=== PATIENT | male | born 1955 | race Caucasian/White ===

== ENCOUNTER 2021-10-19 19:51 | Emergency (ER) | payer OTHER ==
[2021-10-19 19:54] VITALS: BP 123/69; PULSE 71
[2021-10-19] MEDS ORDERED: Take Home: Azithromycin 250 MG, 2 Tab Pack PO ONE (20:31)
== END 2021-10-19 21:06 | disposition home or self-care (01) ==
LOC: CC.ED 19:51
DX: J98.9 Respiratory disorder, unspecified (principal); Z20.822 Contact with and (suspected) exposure to COVID-19
CPT/HCPCS: 36415; 71046; 80053; 85025; 86140; 87804; 99283-25; 99284; A9270-GY; U0002

== ENCOUNTER 2023-09-12 12:08 | Day surgery (SDC) | payer OTHER ==
[2023-09-12] MEDS ORDERED: Propofol 200 MG/20 ML SDV ONE ×2 (12:25)
[2023-09-12] MEDS ORDERED: fentaNYL 50 MCG/ML SDV ONE (12:25)
[2023-09-12] MEDS ORDERED: Ketamine 200 MG/20 ML MDV ONE (12:25)
[2023-09-12] MEDS: Lactated Ringers 1,000 ML IV SCH (12:31)
[2023-09-12 13:52] VITALS: BP 137/72; PULSE 55
== END 2023-09-12 13:55 | disposition home or self-care (01) ==
LOC: CC.SDS 12:08
PROVIDERS: ATTEND Family Medicine
DX: Z12.11 Encounter for screening for malignant neoplasm of colon (principal); D12.3 Benign neoplasm of transverse colon; D12.5 Benign neoplasm of sigmoid colon; K62.1 Rectal polyp; K57.30 Diverticulosis of large intestine without perforation or abscess without bleeding; K64.8 Other hemorrhoids; J43.9 Emphysema, unspecified; F17.210 Nicotine dependence, cigarettes, uncomplicated; Z79.899 Other long term (current) drug therapy
CPT/HCPCS: 00811; J2704; J3010; J3490; J7120

== ENCOUNTER 2024-01-30 10:06 | Inpatient (IN) | payer OTHER ==
[2024-01-30 10:48] LABS: APPEARANCE,URINE CLEAR (CLEAR); BILIRUBIN,URINE NEGATIVE (NEGATIVE); COLOR,URINE YELLOW (YELLOW); GLUCOSE,URINE NEGATIVE (NEGATIVE); KETONES,URINE NEGATIVE (NEGATIVE); LEUKOCYTE ESTERASE,URINE NEGATIVE (NEGATIVE); NITRITE,URINE NEGATIVE (NEGATIVE); OCCULT BLOOD,URINE TRACE-INTACT (NEGATIVE); PROTEIN,URINE TRACE mg/dL (NEGATIVE); UROBILINOGEN,URINE 0.2 EU/dL (0.2-1.0)
[2024-01-30 10:51] LABS: BASOPHILS ABSOLUTE AUTO 0.02 10^3/uL (0.00-0.50); BASOPHILS PERCENT AUTO 0.1 % (0-1); EOSINOPHILS ABSOLUTE AUTO 0.01 10^3/uL (0.00-1.50); EOSINOPHILS PERCENT AUTO 0.1 % (0-6); HEMATOCRIT 46.8 % (42.0-52.0); HEMOGLOBIN 15.4 g/dL (14.0-18.0); IMMATURE GRAN PERCENT AUTO 0.5 % (0.0-4.9); LYMPHOCYTES ABSOLUTE AUTO 1.69 10^3/uL (0.60-5.00); LYMPHOCYTES PERCENT AUTO 8.8 % (24-44); MEAN CORPUSCULAR HEMOGLOBIN 30.6 pg (27.0-32.0); MEAN CORPUSCULAR HGB CONC 32.9 g/dL (32.0-36.0); MEAN CORPUSCULAR VOLUME 92.9 fL (83.0-97.0); MONOCYTES PERCENT AUTO 4.7 % (0-10); NEUTROPHILS ABSOLUTE AUTO 16.53 x10^3/uL (1.80-8.00); NEUTROPHILS PERCENT AUTO 85.8 % (41-71); PLATELET COUNT,PLT 312 10^3/uL (150-400); RED BLOOD CELL COUNT 5.04 x10^6/uL (4.50-6.00); WHITE BLOOD CELL COUNT,WBC 19.3 10^3/uL (4.0-11.0)
[2024-01-30 10:59] LABS: ALBUMIN 4.3 g/dL (3.4-5.0); BILIRUBIN TOTAL 0.3 mg/dL (0.0-1.0); C-REACTIVE PROTEIN 0.93 mg/dL (<=0.50); CALCIUM 9.3 mg/dL (8.4-10.1); CREATININE 0.9 mg/dL (0.7-1.3); EST CRCL DRUG DOSING (CG) 71.87 mL/min; POTASSIUM,K 3.6 mEq/L (3.5-5.0); PROTEIN TOTAL,TP 8.9 g/dL (6.4-8.2)
[2024-01-30 11:00] LABS: RBC,URINE 0-5 /HPF (0-5); SQUAMOUS EPITHELIAL CELLS,UR NOT SEEN /HPF (NOT SEEN); WBC,URINE NOT SEEN /HPF (0-5)
[2024-01-30 11:01] LABS: BACTERIA,URINE NOT SEEN /HPF (NOT SEEN); MUCUS,URINE MANY /HPF (NOT SEEN)
[2024-01-30] MEDS: Ketorolac 30 MG/ML SDV IM ONE (11:14)
[2024-01-30] MEDS: Orphenadrine 60 MG/2 ML Inj IM ONE (11:14)
[2024-01-30] MEDS ORDERED: Sodium Chloride 0.9% 10 ML Syringe FLUSH PRN (15:37)
[2024-01-30] MEDS ORDERED: Ondansetron 4 MG Tab.DIS PO PRN (15:37)
[2024-01-30] MEDS: Ketorolac 30 MG/ML SDV IVPUSH SCH (16:24)
[2024-01-30] MEDS: HYDROmorphone 0.5 MG/0.5 ML Syringe IVPUSH PRN (18:23)
[2024-01-31] MEDS ORDERED: Ketorolac 30 MG/ML SDV IVPUSH PRN (09:57)
[2024-01-31] MEDS: Cyclobenzaprine 10 MG Tab PO PRN (10:04)
[2024-01-31] MEDS: methylPREDNISolone Sodium Succinate 125 MG/2 ML SDV IVPUSH SCH (10:04)
[2024-01-31] MEDS: Cyclobenzaprine 10 MG Tab PO SCH (19:52)
[2024-02-01] MEDS ORDERED: Acetaminophen/HYDROcodone 325-5 MG Tab PO PRN (09:30)
[2024-02-02] MEDS: methylPREDNISolone Sodium Succinate 125 MG/2 ML SDV ONE (03:49)
[2024-02-02 09:06] VITALS: BP 119/56; PULSE 91
[2024-02-03] MEDS ORDERED: methylPREDNISolone Sodium Succinate 125 MG/2 ML SDV IVPUSH SCH (08:00)
== END 2024-02-02 16:53 | disposition home or self-care (01) | DRG 552 ==
LOC: CC.ED 10:06 → INTOOBSV 15:22 → CC.MS 15:22 → OBSVTOIN 15:22 → UNDOADMOB 15:22 → CC.MS 15:30 → UNDOADMOB 15:30 → CC.MS 01-31 09:56 → MERGE 01-31 09:56 → OBSVTOIN 01-31 09:56
PROVIDERS: ADMIT Physician Assistant Medical; ATTEND Physician Assistant Medical
DX: M54.42 Lumbago with sciatica, left side (principal); M54.41 Lumbago with sciatica, right side; Z90.89 Acquired absence of other organs; Z79.52 Long term (current) use of systemic steroids; Z79.899 Other long term (current) drug therapy
CPT/HCPCS: 36415; 72100; 80053; 80307; 81001; 85025; 86140; 96372; 96374; 96375; 96376; 97161-GP; 99223; 99232; 99233; 99238; 99285; A9270-GY; G0378; J1171; J1885; J2360; J2919

== ENCOUNTER 2024-02-09 11:42 | Emergency (ER) | payer OTHER ==
[2024-02-09] MEDS: Orphenadrine 60 MG/2 ML Inj IM ONE (12:27)
[2024-02-09] MEDS: Ketorolac 30 MG/ML SDV IM ONE (12:29)
[2024-02-09 12:44] VITALS: BP 106/67; PULSE 78
== END 2024-02-09 12:42 | disposition home or self-care (01) ==
LOC: CC.ED 11:42
DX: M54.42 Lumbago with sciatica, left side (principal); F17.210 Nicotine dependence, cigarettes, uncomplicated; Z86.16 Personal history of COVID-19; Z79.899 Other long term (current) drug therapy
CPT/HCPCS: 96372; 99283; J1885; J2360